=== PATIENT | male | born 1985 | race Caucasian/White ===

== ENCOUNTER 2020-02-01 13:01 | Emergency (ER) | payer OTHER, MEDICAID ==
[~2020-02-01] VITALS: Ht 185.4 cm; Wt 97.5 kg
[2020-02-01 13:08] VITALS: Ht 185.4 cm; Wt 97.5 kg
[2020-02-01 17:21] VITALS: BP 140/94
== END 2020-02-01 17:21 | disposition home or self-care (01) ==
LOC: ED 13:01
DX: G89.29 Other chronic pain (principal); R51.9 Headache, unspecified; R55 Syncope and collapse; F11.10 Opioid abuse, uncomplicated; J45.909 Unspecified asthma, uncomplicated; H53.149 Visual discomfort, unspecified; Z88.1 Allergy status to other antibiotic agents; Z88.8 Allergy status to other drugs, medicaments and biological substances
CPT/HCPCS: J1885; J2765